=== PATIENT | female | born 1980 | race Caucasian/White ===

== ENCOUNTER 2022-11-19 02:25 | Inpatient (IN) | payer OTHER, SELFPAY ==
[2022-11-19] VITALS (9 sets, daily range): BP systolic 129–153; BP diastolic 69–86; PULSE 84–96; RESP 14–20; TEMP 36.1–37.2; O2SAT 97–100; BMI 24.4; BMI 26.3
--- NOTE | ~2022-11-19 | FL_ITS ---
EXAMINATION: XR FLUOROSCOPY WITH IMAGES CLINICAL INFORMATION: Left ureteral calculus. COMPARISON: CT scan of 11/19/2022. TECHNIQUE: Fluoroscopy Supervised By: Dr. Dev Pitts. Fluoroscopy Time: 30.3 seconds. Cumulative Dose: 5.85 mGy. Images: 5. FINDINGS: C-arm images taken in the operating room demonstrate placement of a left ureteral stent adjacent to a proximal left ureteral calculus. FL/FL guidance in OR IMPRESSION: Placement of left ureteral stent.
--- NOTE | 2022-11-19 03:32 | ED.GENADULT ---
HPI - General Adult General Chief complaint: General Medical Stated complaint: back pain Time Seen by Provider: 11/19/22 03:21 Source: patient and family Mode of arrival: ambulatory Limitations: no limitations History of Present Illness HPI narrative: A 42-year-old female came in for evaluation of left flank pain started about 4 hours ago. Sudden onset of left flank pain that radiates down to the left lower abdomen, never had similar pain in the past, no fever, no chills, no vomiting, pain is associated with nausea. Normal bowel movement, no dysuria, no frequent urination, no hematuria. Sexually active, not . Related Data Allergies Allergy/AdvReac Type Severity Reaction Status Date / Time No Known Allergies Allergy Unknown Unverified 10/29/19 17:27 Review of Systems Review of Systems: All other systems are reviewed and are negative Constitutional: Reports as per HPI and Reports no additional constitutional complaints Eyes: Reports as per HPI and Reports no additional eye complaints Reports system reviewed and no additional complaints, except as documented Cardiovascular: Reports as per HPI and Reports no additional cardiovascular complaints Respiratory: Reports as per HPI and Reports no additional respiratory complaints Gastrointestinal: Reports as per HPI and Reports no additional gastrointestinal complaints Genitourinary: Reports no additional female genitourinary complaints Musculoskeletal: Reports no additional musculoskeletal complaints Skin/Breast: Reports system reviewed and no additional complaints, except as docu Psychiatric: Reports no additional psychiatric complaints Endocrine: Reports no additional endocrine complaints Hematologic/Lymphatic: Reports no additional hematologic/lymphatic complaints Allergic/Immunologic: Reports no additional allergic/immunologic complaints Reports system reviewed and no additional complaints, except as documented and Reports Abnormal speech present [facility] Social History Social History Alcohol intake: never Smoked in Last 30 Days: No Use of substances other than those prescribed or required for medical reasons: No Advance Directives: No Advance Directives Information Provided: No Patient : No Physical Exam ED Vital Signs: Vital Signs - 24 hr 11/19/22 02:38 11/19/22 03:41 11/19/22 06:00 Temperature 97.8 F 98.1 F Pulse Rate 92 84 Respiratory Rate 18 18 16 Blood Pressure 147/81 H 139/74 Pulse Oximetry 99 100 Oxygen Delivery Method Room Air BMI result Body Mass Index 24.4 Vital signs have been reviewed and appear to be correct. Blood pressure elevated. Heart rate normal. Respiratory rate normal. Temperature normal. Oxygen saturation normal. Appearance: Alert. Oriented X3. No acute distress. Head: Normal external exam. Normocephalic. Atraumatic. No [place] signs noted. No raccoon eyes noted Eyes: PERRLA. EOMI. Conjunctiva and sclera normal. Eyelids normal. ENT: TM's Normal. Pharynx normal. Uvula midline. Moist mucous membranes. No trismus noted. No drooling noted. No muffled voice noted. Neck: Normal inspection. Neck supple. FROM. No adenopathy. Thyroid Normal. No meningeal signs. No neck mass noted. CVS: Normal heart rate and rhythm. Heart sound normal. No murmurs noted. Pulses normal throughout. Respiratory: No respiratory distress. Painless inspiration. Breath sounds normal. No wheezes/rales/rhonchi noted. Chest nontender. No accessory muscle usage noted or decreased air movement noted. Abdomen: Soft and nontender. Bowel sounds normal in all 4 quadrants. No distention noted. No organomegaly noted. No visible injury noted. Back: Left CVA tenderness. Full range of motion noted. Skin: Skin warm and dry. Normal skin color. Normal skin turgor. No rashes/lesions/lacerations noted. Extremities: No lower extremity edema. Extremities exhibit normal range of motion. Extremities nontender. Neuro: Oriented X 3. Cranial nerve exam: II-XII are grossly intact No motor deficit. No sensory deficit. Reflexes normal. Course Reevaluation(s) Reevaluation #1: Patient feels better after Dilaudid, pending CT results, signed out to Dr. Clifford. Time: 06:54 Medications Administered Discontinued Medications Generic Name Dose Route Start Last Admin Trade Name Freq PRN Reason Stop Dose Admin Hydromorphone HCl 2 mg 11/19/22 05:46 11/19/22 05:51 Hydromorphone Hcl 2 Mg/Ml Vial IVPUSH 11/19/22 05:47 2 mg ONCE ONE Administration Protocol Sodium Chloride 1,000 mls @ 999 mls/hr 11/19/22 03:31 11/19/22 05:32 Ns IV 11/19/22 04:31 Infused .Q1H1M ONE Infusion Ketorolac Tromethamine 15 mg 11/19/22 03:31 11/19/22 03:39 Ketorolac Tromethamine 15 Mg/Ml Vial IVPUSH 11/19/22 03:32 15 mg ONCE ONE Administration Morphine Sulfate 2 mg 11/19/22 03:31 11/19/22 03:41 Morphine Sulfate 2 Mg/Ml Cartridge IVPUSH 11/19/22 03:32 2 mg ONCE ONE Administration Protocol Ondansetron HCl 4 mg 11/19/22 03:31 11/19/22 03:37 Ondansetron Hcl 4 Mg/2 Ml Vial IVPUSH 11/19/22 03:32 4 mg ONCE ONE Administration Medical Decision Making Differential Diagnosis Differential Diagnoses: The differential diagnosis associated with the presentation includes (UTI, pyelonephritis, left ureteric stone, colitis, diverticulitis, electrolyte abnormality, severe anemia.) Admission/Observation Consideration of admission/observation: Escalation of care including admission/observation considered Lab Data MDM Lab Attestation statement: I reviewed the patient's lab results. 11/19/22 03:33 11/19/22 03:33 Labs: Lab Results 11/19/22 11/19/22 Range/Units 03:33 05:47 WBC 11.3 H (4.8-10.8) X10*3/uL RBC 4.20 (4.20-5.50) X10*6/uL Hgb 10.1 L (12.0-16.0) g/dl Hct 32.1 L (37.0-47.0) % MCV 76.4 L (80.0-98.0) fL MCH 24.0 L (27.0-33.0) pg MCHC 31.5 (31.0-35.0) g/dl RDW 14.4 (11.0-16.0) % Plt Count 313 (160-400) X10*3/uL MPV 9.4 (9.4-12.3) fL Immature Gran % (Auto) 0.4 (0.0-0.4) % Neut % (Auto) 89.2 H (45-73) % Lymph % (Auto) 7.3 L (20-40) % [place] % (Auto) 2.6 (2-11) % Eos % (Auto) 0.1 (0-4) % Baso % (Auto) 0.4 (0-2) % Lymph # (Auto) 0.8 L (1.2-4.9) X10*3/uL [place] # (Auto) 0.3 (0.1-1.2) X10*3/uL Eos # (Auto) 0.0 (0.0-0.4) X10*3/uL Baso # (Auto) 0.0 (0.0-0.2) X10*3/uL Abs Immat Gran (auto) 0.04 H (0.00-0.03) X10*3/uL Absolute Neuts (auto) 10.1 H (2.0-8.3) x10*3/uL Absolute Nucleated RBC 0.000 (0.0-0.012) X10*3/uL Nucleated RBC % (auto) 0.0 (0.0-0.2) /100WBC Sodium 141 (135-145) mmol/L Potassium 3.5 (3.3-5.1) mmol/L Chloride 106 (96-108) mmol/L Carbon Dioxide 23 (22-29) mmol/L Anion Gap 16 (12-20) BUN 19 H (9-16) mg/dL Creatinine 0.94 (0.5-1.4) mg/dL Estim Creat Clear Calc 82.5 Estimated GFR > 60 Random Glucose 120 H (60-115) mg/dL Calcium 9.6 (8.4-10.2) mg/dL Total Bilirubin 0.2 (0.0-1.0) mg/dL AST 17 (5-31) U/L ALT 13 (0-31) U/L Alkaline Phosphatase 66 (39-117) U/L Total Protein 7.2 (6.5-8.0) g/dL Albumin 4.2 (3.5-5.0) g/dL Beta HCG, Quant < 2 mIU/mL Urine Color Yellow Urine Appearance Turbid Urine pH 8.0 (5.0-9.0) Ur Specific [place] 1.015 (1.005-1.025) Urine Protein Negative (Neg-Trace) mg/dL Urine Glucose (UA) Negative (Negative) mg/dL Urine Ketones Negative (Negative) mg/dL Urine Blood Moderate (2+) H (Negative) Urine Nitrite Negative (Negative) Ur Leukocyte Esterase Negative (Negative) Urine RBC >20 H (0-2) /HPF Urine WBC 0-5 (0-5) /HPF Ur Squamous Epith Cells 0-2 (0-2) /HPF Urine Bacteria None Seen (None Seen) Hyaline Casts 0-2 (0-2) /LPF Discharge Plan Discharge Clinical Impression: Acute left flank pain Patient Disposition: Still a Patient
--- NOTE | 2022-11-19 03:45 | PC.NURSE ---
Pt A&Ox4, reports 09/20 constant left flank pain x 4 hours [employer], pt reports she was getting ready for bed and pain started with nausea. Pt denies burning/pain with urination, fevers/chills, no N/D.
[2022-11-19 03:58] LABS: Alanine Aminotransferase 13 U/L (0-31); Albumin Level 4.2 g/dL (3.5-5.0); Alkaline Phosphatase 66 U/L (39-117); Anion Gap 16 (12-20); Aspartate Amino Transferase 17 U/L (5-31); Bilirubin Total 0.2 mg/dL (0.0-1.0); Blood Urea Nitrogen 19 mg/dL (9-16); Calcium 9.6 mg/dL (8.4-10.2); Carbon Dioxide 23 mmol/L (22-29); Chloride 106 mmol/L (96-108); Creatinine Clr Calc Pharmacy 82.5; Estimated Glomerular Filt Rate > 60; Glucose Random 120 mg/dL (60-115); Potassium 3.5 mmol/L (3.3-5.1); Sodium 141 mmol/L (135-145); Total Protein 7.2 g/dL (6.5-8.0)
[2022-11-19 04:00] LABS: HCG Quantitative < 2 mIU/mL
--- NOTE | 2022-11-19 05:43 | PC.NURSE ---
Pt ambulated independently with steady gait to BR.
--- NOTE | 2022-11-19 06:26 | PC.NURSE ---
Pt reports effectiveness to med given.
--- NOTE | 2022-11-19 11:37 | PC.NURSE ---
pt awake, alert, resting comfortably in bed. 1mg IVP Dilaudid helpful in pain reduction. pt awaiting consult from Dr. Pitts
--- NOTE | 2022-11-19 15:59 | PC.NURSE ---
pt resting comfortably at this time, RR even and labored, NAD. awaiting dr klein consult
--- NOTE | 2022-11-19 16:36 | PM.HPGS ---
History of Present Illness History of Present Illness Date of Service: 11/20/22 Chief complaint: left renal stone Narrative: Angely Barrow is a 42 year old female Left UPJ/upper ureter stone Pain since 11pm last night Present hospital No prior history of renal stones Family history renal stones No fever, no chills, no vomiting, pain is associated with nausea. Normal bowel movement, no dysuria, no frequent urination, no hematuria. Imaging - Mild left hydronephrosis and perinephric edema are caused by a 0.7 x 0.5 x 0.8 cm stone in region of the ureteropelvic junction Highly unlikely to pass stone Recommend intervention with left retrograde, ureteroscopy, laser, lithotripsy Review of Systems Constitutional: Constitutional: Reports as per HPI and Reports no additional constitutional complaints Cardiovascular: Cardiovascular: Reports as per HPI and Reports no additional cardiovascular complaints Respiratory: Respiratory: Reports as per HPI and Reports no additional respiratory complaints Gastrointestinal: Gastrointestinal: Reports as per HPI and Reports no additional gastrointestinal complaints Genitourinary: Genitourinary: Reports as per HPI Musculoskeletal: Musculoskeletal: Reports no additional musculoskeletal complaints and Reports as per HPI Neurologic: Reports system reviewed and no additional complaints, except as documented and Reports as per HPI [facility] Social History Social History Household Members: Spouse Housing: House Do you presently have visiting nurse or other home services: No Alcohol intake: never Patient Tobacco Use Status: Never used Tobacco Smoked in Last 30 Days: No Use of substances other than those prescribed or required for medical reasons: No Currently Displaying Signs/Symptoms of Drug Intoxication Withdrawal: No Do you feel safe in your current relationship?: Yes Is there a partner from a previous relationship who is making you feel unsafe now?: No Are you made to feel afraid or neglected: No Advance Directives: No Advance Directives Information Provided: No Do you have thoughts of harming others: None Do you have a plan to hurt others: No Plan Recently lost weight without trying: No Eating poorly because of decreased appetite: No Nutrition Risks: No Nutritional Risk Patient : No : No Poor oral hygiene: No service: No Meds Allergies Allergy/AdvReac Type Severity Reaction Status Date / Time No Known Allergies Allergy Unknown Unverified 10/29/19 17:27 Active Medications: Current Medications Sodium Chloride (Ns) 1,000 mls @ 100 mls/hr IVCONT .Q10H [facility] Ketorolac Tromethamine (Ketorolac Tromethamine 30 Mg/Ml Vial) 30 mg IVPUSH Q6H PRN PRN Reason: Pain, Mild (Pain Scale 1-3) Stop: 11/24/22 16:30 Oxycodone HCl (Oxycodone Hcl Immed Release 5 Mg Tablet) 5 mg PO Q6H PRN PRN Reason: Pain, Severe (Pain Scale 7-10) Sodium Chloride (0.9 % Sodium Chloride Flush 3 Ml Syringe) 3 ml IVFLUSH QSHIFT [facility] Home Medications Medication Instructions Recorded Confirmed Last Taken Type amitriptyline 75 mg tablet 75 mg PO BEDTIME 11/19/22 11/19/22 11/18/22 History sumatriptan succinate 100 mg tablet 100 mg PO DAILY MRX1 PRN migraines 11/19/22 11/19/22 Unknown History sumatriptan succinate 6 mg/0.5 mL 6 mg subcut DAILY MRX1 PRN migraine 11/19/22 11/19/22 11/19/22 History subcutaneous pen injector Physical Exam Vital Signs: Vital Signs: Last Vital Signs Temp 98.9 F 11/19/22 15:40 Pulse 96 11/19/22 15:40 Resp 18 11/19/22 15:40 BP 148/75 H 11/19/22 15:40 Pulse Ox 100 11/19/22 15:40 O2 Del Method Room Air 11/19/22 15:40 BMI result Body Mass Index 24.4 Const: General: cooperative, healthy appearing, comfortable and no acute distress Orientation/consciousness: patient oriented x3 HEENT: Face and sinus: Yes normal facial exam Mouth: moist mucous membranes Neck: Neck: Yes normal visual inspection, Yes full ROM and Yes trachea midline Chest: Chest palpation & inspection: normal inspection of the chest Resp: Effort & Inspection: normal respiratory effort, able to speak in complete sentences and no respiratory distress GI: Inspection: Yes normal to inspection Back/Spine/Pelvis: Cervical Spine: normal cervical lordosis Thoracic/Lumbar Spine: thoracic and lumbar spine normal to inspection Skin: General skin exam: no rashes or lesions noted Neuro: General: patient oriented x3, tone normal and moves all extremities Extrem: General: Yes normal to inspection and Yes capillary refill normal Results Results Labs: Short CBC 11/19/22 Range/Units 03:33 WBC 11.3 H (4.8-10.8) X10*3/uL Hgb 10.1 L (12.0-16.0) g/dl Hct 32.1 L (37.0-47.0) % Plt Count 313 (160-400) X10*3/uL BMP 11/19/22 03:33 Sodium 141 Potassium 3.5 Chloride 106 Carbon Dioxide 23 BUN 19 H Creatinine 0.94 Calcium 9.6 Liver Function 11/19/22 Range/Units 03:33 Total Bilirubin 0.2 (0.0-1.0) mg/dL AST 17 (5-31) U/L ALT 13 (0-31) U/L Alkaline Phosphatase 66 (39-117) U/L Albumin 4.2 (3.5-5.0) g/dL Urine 11/19/22 Range/Units 05:47 Urine Color Yellow Urine Appearance Turbid Urine pH 8.0 (5.0-9.0) Ur Specific [place] 1.015 (1.005-1.025) Urine Protein Negative (Neg-Trace) mg/dL Urine Glucose (UA) Negative (Negative) mg/dL Assessment and Plan (1) Hydronephrosis: Qualifiers: Hydronephrosis type: with ureteral calculous obstruction Qualified Code(s): N13.2 - Hydronephrosis with renal and ureteral calculous obstruction Status: Acute Plan Ureteroscopy We discussed the nature of the decision and reasonable alternatives for performing ureteroscopy. Options such as medical therapy were discussed. Interventions include chemical dissolution, ESWL, ureteroscopy with laser lithotripsy and stent placement, PCNL. The relative uncertainties and benefits related to each alternate procedure were adequately discussed. General surgical risks including, but not limited to - pain, bleeding, infection, myocardial infarction, pulmonary embolus, deep vein thrombosis and cerebrovascular accident which may result in further hospitalization were discussed. Full disclosure of the procedure as well as all major risks, benefits and complications were discussed including but not limited to damage to the urethra, bladder and kidney infection, damage to the ureter, stent migration or malposition, scarring to the renal pelvis, remnant stone fragments, subsequent stone passage with need for secondary procedures. The overall secondary procedure rate is approximately 10-15%. The overall clearance rate is approximately 90-95%. Success of the procedure in the short-term does not necessarily guarantee that long-term success will be maintained. Suitable follow up will need to be maintained. The patient showed understanding of discussion and wishes to proceed with - cystoscopy, retrograde, ureteroscopy, possible lithotripsy/stone basketing and stent on the left side Time Spent With Patient Time: Total time managing care of this patient today ____ minutes. Quality Stroke Does the patient have a stroke diagnosis?: No VTE Prior VTE?: No VTE Risk Level:: Surgical - low VTE Device Contraindication: Treatment Not Indicated VTE Drug Contraindication: Treatment Not Indicated Procedures Date of Service Date of Service: 11/20/22
--- NOTE | 2022-11-19 17:55 | PHA.MEDREC ---
Pharmacy Consult ? Medication Reconciliation Pharmacy has completed the medication reconciliation.
[2022-11-20] VITALS (11 sets, daily range): BP systolic 131–166; BP diastolic 72–85; PULSE 91–97; RESP 14–20; TEMP 36.3–37.7; O2SAT 96–99
--- NOTE | 2022-11-20 15:00 | MHC.CM.PN ---
PT REPORTS SHE LIVES WITH HER AND CHILDREN SHE IS INDEPENDENT WITH CARE, HAS NO SERVICES AND NO DME PT DECLINES TO COMPLETE A HCP HER PCP IS CLIFF CLEMENTS DCP: HOME NO SERVICES VIA FAMILY TRANSPORT
--- NOTE | 2022-11-20 17:57 | MHC.SHP ---
Pre-Procedural Eval Section A Date of Service: 11/20/22 The patient is an INPATIENT: Yes Changes since office visit: No Cold of Flu in the past 2 weeks, No New Medical Problems, No Changes in Medication and No Patient answered all questions The History & Physical has been completed within 30 days and I have reviewed it.: Yes Section B Chief Complaint: left renal stone Allergies: Allergies Allergy/AdvReac Type Severity Reaction Status Date / Time No Known Allergies Allergy Unknown Unverified 10/29/19 17:27 Plan Diagnosis/Plan: Unchanged (cystoscopy, left retrograde, ureteroscopy, laser, stent) I have reviewed the history and physical and performed a pertinent physical examination on my patient. No changes have occurred unless specified. Time Spent With Patient Time: Total time managing care of this patient today ____ minutes.
--- NOTE | 2022-11-20 19:14 | W.PM.OPN ---
Operative Note Operative Note Date of Service: 11/20/22 Narrative: PreOperative Diagnosis: left UPJ renal stone Post Operative Diagnosis: left UPJ renal stone Procedure: - cystoscopy, left retrograde - left dilatation of ureteric orifice under fluoroscopy - left ureteroscopy, laser lithotripsy, stone basketing - left stent placement Surgeon: Dr Dev Pitts Anesthesia: General Indications for procedure: left 8 mm UPJ renal stone Procedure: After informed consent was verified patient was brought to the operating placed in supine position. Anesthesia was administered per protocol. Patient was placed in modified dorsal lithotomy position and prepped and draped in a sterile fashion. Safety pause time-out and side of surgery confirmed. Antibiotics confirmed. 22 [place] cystoscope was inserted per urethra. Bladder was normal in its entirety. Both ureteric orifices were in normal position. The left ureteric orifice was cannulated and a retrograde examination was performed. filling defects seen at left UPJ. A Sensor guidewire was placed up to the level of the renal pelvis under fluoroscopy. The rigid cystoscope was removed and the inner cannula of ureteric access sheath was used under fluoroscopy to dilate the ureteric orifice. Avelino dilator used. Initially rigid ureteral scope placed. Unable to reach stone. The ureteric access sheath was placed and the inner cannula with access wire removed. The digital flexible ureteral scope was placed. Stone was encountered. Using a 272 holmium laser fiber the stone was broken into small pieces initially with dusting settings. The stone remnant moved back into the renal pelvis. Using have a settings this was broken into small pieces. ZeroTip basket used to remove stone fragments. At the completion of the stone procedure a Sensor wire was placed back into the renal pelvis. A 6 [place] by 28 cm double-J stent was placed into the renal pelvis and bladder under a combination of fluoroscopy and direct visualization. The symphisis pubis was used as a radiographic marker to release the stent and good coil was seen within the bladder confirming position The bladder was emptied. The patient tolerated the procedure well and was extubated in the operating room, and transferred in stable condition to the recovery area. Pathology: stones Drains: stent
--- NOTE | 2022-11-20 19:20 | PM.DS ---
DS: Providers Provider Date of Service: 11/20/22 Date of admission: 11/19/22 16:31 Primary care physician: Jennie Gilbert NP DS: Diagnosis Discharge Diagnosis (1) Hydronephrosis: Status: Acute DS: Summary Hospital Course Hospital Course: admission, hospital procedure 11/20/2022 left ureteroscopy Time spent discussing smoking cessation with patient: 3 to 10 minutes Status at Discharge Functional status at discharge: independent ambulation Overall status at discharge: patient is back to baseline Time Spent with Patient Time attestation: Total time managing care of this patient today ____ minutes. Discharge coordination time: Less than 30 minutes Quality: Safe Use of Opioids Does Pt have an Active Cancer Diagnosis on the Problem List?: No Quality: Stroke Does the patient have a stroke diagnosis?: No Physical Exam Vital Signs: Vital Signs: Last Vital Signs Temp 99.8 F 11/20/22 16:31 Pulse 92 11/20/22 16:31 Resp 18 11/20/22 16:31 BP 147/82 H 11/20/22 17:55 Pulse Ox 98 11/20/22 16:31 O2 Del Method Room Air 11/20/22 16:31 BMI result Body Mass Index 26.3 DS: Data Data Completed and Pending Pending studies at discharge: Pending at discharge 11/20/22 19:12 Surgical [PTH] Routine Imaging CT scan - abdomen: Attestation: I personally reviewed and interpreted this imaging study as follows: My impression: left stone 8 mm UPJ Radiologist's impression: ITS Impressions Abdomen/Pelvis CT 11/19/22 04:42 IMPRESSION: * Bilateral renal stones are present. * Mild left hydronephrosis and perinephric edema are caused by a 0.7 x 0.5 x 0.8 cm stone in the region of the ureteropelvic junction. Discharge Plan Discharge Anticipated Discharge Date/Time: 11/20/22 19:16 Patient Disposition: Home, Self-Care Discharge Diagnosis: Renal stone Referrals: Dev Pitts MD [Physician] - 1 Week Jennie Gilbert NP [Primary Care Provider] - None Discharge Medications: New tramadol 50 mg tablet 50 mg PO Q6H PRN (Reason: pain (scale score 1-3)) Qty: 8 0RF tamsulosin 0.4 mg capsule 0.4 mg PO BEDTIME 14 Days Qty: 14 0RF phenazopyridine [Pyridium] 100 mg tablet 100 mg PO TID PRN (Reason: Spasm) 4 Days Qty: 12 0RF naproxen 500 mg tablet 500 mg PO BID PRN (Reason: pain) 7 Days Qty: 14 0RF Continued amitriptyline 75 mg tablet 75 mg PO BEDTIME sumatriptan succinate 100 mg tablet 100 mg PO DAILY MRX1 PRN (Reason: migraines) sumatriptan succinate 6 mg/0.5 mL pen injector 6 mg subcut DAILY MRX1 PRN (Reason: migraine) Discharge Orders: Discharge Order (Routine); Ordered 11/20/22 Ordered By: Dev Pitts Diet: Advance to usual diet Activity on Discharge: As tolerated Stand Alone Forms: Patient Portal Discharge page Care Plan Goals: stones Health Concerns: stones Plan of Treatment: stones Assessment: stones
--- NOTE | 2022-11-20 19:27 | HO.ANESPROP2 ---
REPLACED BY [facility] Active Problems Active Problems: All Active Problems (Updated 11/19/22 @ 15:58 by Lionel Clifford MD) Hydronephrosis (Acute) Renal colic (Acute) Acute left flank pain (Acute) Social History Social History Household Members: Spouse Housing: House Do you presently have visiting nurse or other home services: No Alcohol intake: never Patient Tobacco Use Status: Never used Tobacco Smoked in Last 30 Days: No Use of substances other than those prescribed or required for medical reasons: No Currently Displaying Signs/Symptoms of Drug Intoxication Withdrawal: No Do you feel safe in your current relationship?: Yes Is there a partner from a previous relationship who is making you feel unsafe now?: No Are you made to feel afraid or neglected: No Advance Directives: No Advance Directives Information Provided: No Do you have thoughts of harming others: None Do you have a plan to hurt others: No Plan Recently lost weight without trying: No Eating poorly because of decreased appetite: No Nutrition Risks: No Nutritional Risk Patient : No : No Poor oral hygiene: No service: No Meds Allergies Allergy/AdvReac Type Severity Reaction Status Date / Time No Known Allergies Allergy Unknown Unverified 10/29/19 17:27 Active Medications: Current Medications Acetaminophen (Acetaminophen 325 Mg Tablet) 975 mg PO TID [facility] Last Admin: 11/20/22 14:27 Dose: 975 mg Sodium Chloride (Ns) 1,000 mls @ 100 mls/hr IVCONT .Q10H [facility] Last Admin: 11/20/22 14:27 Dose: 100 mls/hr Ketorolac Tromethamine (Ketorolac Tromethamine 30 Mg/Ml Vial) 30 mg IVPUSH Q6H PRN PRN Reason: Pain, Mild (Pain Scale 1-3) Stop: 11/24/22 16:30 Last Admin: 11/20/22 14:27 Dose: 30 mg Ketorolac Tromethamine (Ketorolac Tromethamine 15 Mg/Ml Vial) 15 mg IVPUSH Q6H PRN PRN Reason: Pain, Moderate(Pain Scale 4-6) Ondansetron HCl (Ondansetron Odt 4 Mg Tab.Rapdis) 4 mg TRANSLINGU Q8H PRN PRN Reason: Nausea Last Admin: 11/20/22 12:26 Dose: 4 mg Ondansetron HCl (Ondansetron Odt 4 Mg Tab.Rapdis) 4 mg TRANSLINGU Q6H PRN PRN Reason: Nausea Oxycodone HCl (Oxycodone Hcl Immed Release 5 Mg Tablet) 5 mg PO Q6H PRN PRN Reason: Pain, Severe (Pain Scale 7-10) Last Admin: 11/20/22 10:56 Dose: 5 mg Oxycodone HCl (Oxycodone Hcl Immed Release 5 Mg Tablet) 5 mg PO Q4H PRN PRN Reason: Breakthrough Pain Sodium Chloride (0.9 % Sodium Chloride Flush 3 Ml Syringe) 3 ml IVFLUSH QSHIFT JULIETTE Last Admin: 11/20/22 15:19 Dose: Not Given Tramadol HCl (Tramadol Hcl 50 Mg Tablet) 50 mg PO Q6H PRN PRN Reason: Pain, Moderate(Pain Scale 4-6) Home Medications Medication Instructions Recorded Confirmed Last Taken Type amitriptyline 75 mg tablet 75 mg PO BEDTIME 11/19/22 11/19/22 11/18/22 History sumatriptan succinate 100 mg tablet 100 mg PO DAILY MRX1 PRN migraines 11/19/22 11/19/22 Unknown History sumatriptan succinate 6 mg/0.5 mL 6 mg subcut DAILY MRX1 PRN migraine 11/19/22 11/19/22 11/19/22 History subcutaneous pen injector Exam Exam Date and Time: November 20, [id number] Height,Weight and Vital Signs: Height 5 ft 10 in Weight 83 kg Last Vital Signs Temp 99.8 F 11/20/22 16:31 Pulse 92 11/20/22 16:31 Resp 18 11/20/22 16:31 BP 147/82 H 11/20/22 17:55 Pulse Ox 98 11/20/22 16:31 O2 Del Method Room Air 11/20/22 16:31 Pertinent Lab Results Pertinent Lab Results: Laboratory Tests 11/19/22 11/19/22 03:33 05:47 WBC 11.3 H RBC 4.20 Hgb 10.1 L Hct 32.1 L MCV 76.4 L MCH 24.0 L MCHC 31.5 RDW 14.4 Plt Count 313 MPV 9.4 Immature Gran % (Auto) 0.4 Neut % (Auto) 89.2 H Lymph % (Auto) 7.3 L [place] % (Auto) 2.6 Eos % (Auto) 0.1 Baso % (Auto) 0.4 Lymph # (Auto) 0.8 L [place] # (Auto) 0.3 Eos # (Auto) 0.0 Baso # (Auto) 0.0 Abs Immat Gran (auto) 0.04 H Absolute Neuts (auto) 10.1 H Absolute Nucleated RBC 0.000 Nucleated RBC % (auto) 0.0 Sodium 141 Potassium 3.5 Chloride 106 Carbon Dioxide 23 Anion Gap 16 BUN 19 H Creatinine 0.94 Estim Creat Clear Calc 82.5 Estimated GFR > 60 Random Glucose 120 H Calcium 9.6 Total Bilirubin 0.2 AST 17 ALT 13 Alkaline Phosphatase 66 Total Protein 7.2 Albumin 4.2 Beta HCG, Quant < 2 Urine Color Yellow Urine Appearance Turbid Urine pH 8.0 Ur Specific [place] 1.015 Urine Protein Negative Urine Glucose (UA) Negative Urine Ketones Negative Urine Blood Moderate (2+) H Urine Nitrite Negative Ur Leukocyte Esterase Negative Urine RBC >20 H Urine WBC 0-5 Ur Squamous Epith Cells 0-2 Urine Bacteria None Seen Hyaline Casts 0-2 Airway Mallampati Class: II TM Dist: >3cm Neck ROM: Full Heart: RRR Lungs: CTA Assessment and Plan Final Anesthetic Review ASA Class: II Final Preanesthetic Review: Meds/Allgs Chart Reviewed, Consent Obtained/Reviewed and Anes Risks/Benef Reviewed Patient Risk: Low Procedure Risk: Low Anesthetic Plan Anesthetic Plan: GA Disposition: Standard PACU
[2022-11-27 19:39] LABS: Stone Source KIDNEY STONE
== END 2022-11-20 20:50 | disposition home or self-care (01) | DRG 661 ==
LOC: HO.ED 15:58 → HO.EDOVER 16:49 → HO.S3 19:17
PROVIDERS: Admitting Provider Urology; Emergency Provider Emergency Medicine; PCP Nurse Practitioner Adult Health; Visit Provider Urology
PROC: 0T778DZ Dilation of Left Ureter with Intraluminal Device, Via Natural or Artificial Opening Endoscopic (ICD-10-PCS; principal; 2022-11-20 16:30)
DX: N13.2 Hydronephrosis with renal and ureteral calculous obstruction (principal)
CPT/HCPCS: 36415; 74176; 80053; 81001; 82365; 84702; 85025; 88300; 99285; C1758; C1769; C1894; C2617; J1170; J1885; J1956; J2250; J2270; J2405; J3010; J3030; Q9967

== ENCOUNTER → 2022-11-19 16:31 | Outpatient (BNV) | payer OTHER, SELFPAY | PROVIDERS: Admitting Provider Urology; Emergency Provider Emergency Medicine; PCP Nurse Practitioner Adult Health; Visit Provider Urology | DX: N13.2 Hydronephrosis with renal and ureteral calculous obstruction (principal) | CPT/HCPCS: 52356; 74420; 99222; 99238 ==

== ENCOUNTER 2022-11-29 09:28 | Outpatient (AMB) | payer OTHER, SELFPAY ==
--- NOTE | 2022-11-29 09:29 | A.OFFVIS_ITS ---
Intake Intake Visit Reasons: Stent Removal Intake Note: Patient presents today for a CYSTOSCOPY Procedure: Meds: None Allergies to Antibiotic: No Known Allergies Blood Thinner: None Urinalysis test cleared for Cysto Disposable Uro-G Cystoscope Cannula: Lot: [id number] Exp: 06/24/2024 Set Up And Charger Required: No Accompanied by: Self / Same As Patient Allergies No Known Allergies Allergy (Unknown, Verified 11/29/22 09:31) HPI HPI Comments History of Present Illness Details Angely is a 42-year-old female who presents today to the office for a follow-up. 11/29/22? She is followed today for stent removal. She has seen Dev Perez on 11/20/22 for acute left flank pain. Patient states that this was her first episode of having kidney stone. She went to ER for pain and had a 8 mm obstructing left UPJ stone. She underwent lithotripsy ureteroscopy by Dr. Pitts. A stent was placed at that time. Patient has a past medical history significant for migraines for which she is taking amitriptyline. I have reviewed CAT scan of the abdomen/pelvis results from 11/19/22 revealed mild left hydronephrosis and perinephric edema are caused by a 0.7 x 0.5 x 0.8 cm stone in the region of the ureteropelvic junction. Calcium Oxalate Monohydrate (Whewellite) 95%, and Carbonate Apatite (Dahllite) 5% 11/29/22: Plan: Follow-up in 10 weeks, 24-hour urine collection, KUB and renal US prior[facility] Surgical History Hx of cystoscopy Family History Father No problems noted. Mother No problems noted. Social History Household Members: Spouse Housing: House Do you presently have visiting nurse or other home services: No Alcohol intake: never Patient Tobacco Use Status: Never used Tobacco service: No Review of Systems Const All systems reviewed & are unremarkable except as noted in HPI and below Reports no additional complaints Eyes Reports no additional complaints ENT Reports no additional complaints Card Denies dyspnea Resp Denies cough and Denies dyspnea GI Reports no additional complaints Reports no additional complaints Musc Reports no additional complaints Skin/Breast Denies rash and Denies unusual bruising Neuro Reports no additional complaints Psych Reports no additional complaints Endo Reports no additional complaints Avery/Lymph Reports no additional complaints Aller/Immun Reports no additional complaints Office Procedures Cystoscopy Consent Discussed risk and benefit or proposed procedure with the patient. Information consent for procedure given to the patient. Discussed technical aspects, risks, benefits and alternatives in full. Addressed all of the patient's questions and concerns regarding the procedure. The patient demonstrated knowledge and understanding. They wish to proceed with this procedure. Preparation The patient was prepped in the usual manner. A cartography/mapping technician was present and in the room. Genitalia was prepped with betadine solution in a sterile manner. Lidocaine Jelly 2% was placed into the urethra and 16Fr flexible Olympus cystoscope was inserted into the meatus after adequate lubrication. 80006-Ltaolowslt with stent removal DISPOSABLE SCOPE URO-G FLEXIBLE SCOPE Procedure code (CPT) selection complete Office Meds lidocaine HCl 2 % mucosal jelly in applicator Performing Provider: Rocio Rodriguez MD Performing Location: [facility] Administered by: Arun Talbot LPN on 11/29/22 10:07 Dose Route Admin Location Dispensed Lot Number Expiration Date NDC Catalytic Converter Operator Helper 10 mL intra-urethral 20 mL naproxen 500 mg tablet Performing Provider: Rocio Rodriguez MD Performing Location: [facility] Administered by: Arun Talbot LPN on 11/29/22 10:07 Dose Route Admin Location Dispensed Lot Number Expiration Date NDC Catalytic Converter Operator Helper 500 mg PO 1 tab ciprofloxacin HCl 500 mg tablet Performing Provider: Rocio Rodriguez MD Performing Location: [facility] Administered by: Arun Talbot LPN on 11/29/22 10:07 Dose Route Admin Location Dispensed Lot Number Expiration Date NDC Catalytic Converter Operator Helper 500 mg PO 1 tab Results AMB Urinalysis, Automated UA Leukoctes 70 George/uL Last Edit by ESTHER Yuo on 11/29/22 10:00 UA Nitrite Negative Last Edit by Omar Ladd Theron on 11/29/22 10:00 UA Urobilinogen 0.2 mg/dL Last Edit by ESTHER You on 11/29/22 10:0 0 UA Protein 30 mg/dL Last Edit by Omar Ladd Theron on 11/29/22 10:00 1+ Omar Ladd 11/29/22 10:00 UA pH 7.5 Last Edit by Omar Ladd Theron on 11/29/22 10:00 UA Blood 80 Maynor/uL Last Edit by Omar Ladd Theron on 11/29/22 10:00 2+ Omar Ladd 11/29/22 10:00 UA Specific [place] 1.010 Last Edit by ESTHER You on 11/29/22 10: 00 UA Ketone Negative Last Edit by Omar Ladd Theron on 11/29/22 10:00 UA Bilirubin 0 mg/dL Last Edit by Omar Ladd Theron on 11/29/22 10:00 UA Glucose 0 mg/dL Last Edit by ESTHER You on 11/29/22 10:00 Results Reviewed Results Reviewed: Laboratory Last Values Urine pH (Auto) 7.5 11/29/22 09:57 Specific [place] (Auto) 1.010 11/29/22 09:57 Urine Protein (Auto) 30 mg/dL 11/29/22 09:57 Glucose (UA)(Auto) 0 mg/dL 11/29/22 09:57 Urine Ketones (Auto) Negative 11/29/22 09:57 Urine Blood (Auto) 80 Maynor/uL 11/29/22 09:57 Urine Nitrite (Auto) Negative 11/29/22 09:57 Urine Bilirubin (Auto) 0 mg/dL 11/29/22 09:57 Urine Urobilinogen (Auto) 0.2 mg/dL 11/29/22 09:57 Leukocyte Esterase (Auto) 70 George/uL 11/29/22 09:57 Date of Service: 11/19/22 EXAMINATION: CT ABDOMEN AND PELVIS WITHOUT CONTRAST?? CLINICAL INFORMATION: Left flank pain.?? COMPARISON: None available. FINDINGS: LUNG BASES: Normal. No pulmonary consolidation or pleural effusion.?? LIVER: The liver has normal size, shape, and attenuation.? No evidence of liver mass. GALLBLADDER AND BILIARY TREE: Gallbladder is without radiopaque stones, wall thickening or pericholecystic fluid.? No dilated bile ducts. PANCREAS: Normal. No edema, pancreatic ductal dilatation or mass.?? SPLEEN: Normal.?? ADRENAL GLANDS: Normal.?? KIDNEYS AND URETERS: Kidneys are normal in size. There are at least two small, 0.2 cm calyceal stones of the lower pole of the right kidney. Also, a few small calyceal stones of less than 0.4 cm size are present in the lower pole of the left kidney. Mild left hydronephrosis and perinephric edema are caused by a 0.7 x 0.5 x 0.8 cm stone in region of the ureteropelvic junction. This stone has density of approximately 1350 Hounsfield units and is located 13 cm deep from the skin surface at the posterior axillary line.? BLADDER:? Normal. No calculi or wall thickening. BOWEL AND PERITONEUM: Stomach is unremarkable. No dilated loops of bowel. The appendix is normal. A few diverticula of the sigmoid colon are present. No overt bowel wall thickening or mesenteric fat stranding. No free fluid or pneumoperitoneum. ABDOMINAL WALL: No significant findings.?? VASCULATURE: Unremarkable. LYMPH NODES: No pathologic sized lymph nodes in the abdomen or pelvis. No inguinal lymphadenopathy. PELVIC VISCERA: No uterine or adnexal mass. MUSCULOSKELETAL: Unremarkable.?? IMPRESSION:? *? Bilateral renal stones are present. *? Mild left hydronephrosis and perinephric edema are caused by a 0.7 x 0.5 x 0.8 cm stone in the region of the ureteropelvic junction. SPEC : [id number] GEORGE: 11/20/22 STATUS: COMP REQ : [id number] RECD: 11/21/22 [facility] DR: Dev Pitts MD COMP: 11/27/22 ENTERED: 11/21/22 [facility] [address]: CLIFF CLEMENTS NP ORDERED: Kidney Stone QUERIES: Kidney Stone Source: [id number] Test Result Flag Reference Site Component 1 SEE NOTE QUM Calcium Oxalate Monohydrate (Whewellite) 95% Carbonate Apatite (Dahllite) 5% See Note 1 Stone Weight 0.042 g QUM Note 1 This test was developed and its analytical performance characteristics have been determined by [employer]. It has not been cleared or approved by the FDA. This assay has been validated pursuant to the CLIA regulations and is used for clinical purposes. THIS TEST WAS PERFORMED AT: [facility] [id number] [place] [id number] AURORA DANIELS MD Stone Source KIDNEY STONE QUM Assessment & Plan Assessment & Plan (1) Bilateral kidney stones: Code(s): N20.0 - Calculus of kidney (2) Ureteral stone with hydronephrosis: Code(s): N13.2 - Hydronephrosis with renal and ureteral calculous obstruction (3) Ureteral stone: Code(s): N20.1 - Calculus of ureter Plan Follow-up in 10 weeks, 24-hour urine collection, KUB and renal US prior. Orders: Orders US renal BI Today N20.0 - Calculus of kidney AMB Urinalysis Automated Today Z13.9 - Encounter for screening, unspecified AMB Cystoscopy Today N13.30 - Unspecified hydronephrosis XR KUB Today N20.0 - Calculus of kidney Patient Instructions: The patient had an opportunity to ask questions regarding treatment plan. All questions were answered. Imaging, Laboratory studies and physical exam results were discussed and reviewed in detail. No major barriers to understanding were identified. The patient expressed understanding and agreement with the above treatment plan.? ? ? The patient is aware they should contact our office by phone for worsening of their current condition or the appearance of new symptoms. Compliance is en couraged with any medications and followup testing that is ordered.? ? ? It is a privilege to be allowed the opportunity to participate in the urologic care of your patient. If you have any questions or concerns regarding treatment for the above conditions please do not hesitate to contact me. The office telephone contact is [phone].? ? ? This note is constructed in part using voice recognition software. While every effort has been made to ensure accuracy casing trimmer errors may have been included.? ? ? Yours sincerely,? ? ? Rocio Rodriguez MD? ? Coding Level of Care Code Est Pt Level 3 (85432) Diagnoses Bilateral kidney stones N20.0 Ureteral stone with hydronephrosis N13.2 Ureteral stone N20.1 CPT Codes Cystoscopy - CPT: 42675-[id number] with stent removal ([id number])
== END 2022-11-29 10:36 | disposition home or self-care (01) ==
PROVIDERS: PCP Nurse Practitioner Adult Health; Visit Provider Urology
DX: N13.30 Unspecified hydronephrosis (principal); Z96.0 Presence of urogenital implants; Z13.9 Encounter for screening, unspecified
CPT/HCPCS: 52310

== ENCOUNTER → 2022-11-29 09:28 | Outpatient (BNVA) | payer OTHER, SELFPAY | PROVIDERS: PCP Nurse Practitioner Adult Health; Visit Provider Urology | DX: Z48.816 Encounter for surgical aftercare following surgery on the genitourinary system (principal); N13.2 Hydronephrosis with renal and ureteral calculous obstruction | CPT/HCPCS: 52310; 81003 ==

== ENCOUNTER 2023-01-18 12:38 | Outpatient (REF) | payer OTHER, SELFPAY ==
--- NOTE | ~2023-01-18 | US_ITS ---
EXAMINATION: US RETROPERITONEAL LIMITED (RENAL ONLY) CLINICAL INFORMATION: Calculus of kidney. COMPARISON: X-ray KUB 01/18/2023. CT abdomen and pelvis 11/19/2022. TECHNIQUE: Real-time imaging of the kidneys. FINDINGS: RIGHT KIDNEY: 12.6 x 4.5 x 6 cm (SAG x AP x TRV). The kidney is normal in size, contour, and echogenicity. Renal cortical thickness is normal. No calculi or focal parenchymal lesions. No hydronephrosis. LEFT KIDNEY: 11.7 x 6.4 x 5.3 cm (SAG x AP x TRV). The kidney is normal in size, contour, and echogenicity. Renal cortical thickness is normal. 4 mm nonobstructing lower pole calculus. No hydronephrosis. US/US renal BI IMPRESSION: 4 mm nonobstructing left renal calculus. No right-sided renal calculi. No hydronephrosis of either kidney.
--- NOTE | ~2023-01-18 | XR_ITS ---
EXAMINATION: XR ABDOMEN KUB CLINICAL INDICATION: Calculus of kidney. COMPARISON: Renal ultrasound of 01/18/2023. CT abdomen and pelvis of 11/19/2022. TECHNIQUE: 2 AP views of the abdomen. FINDINGS: Nonobstructive bowel gas pattern. Moderate amount of stool in the colon. Visualization of the bilateral kidneys is limited due to overlying bowel. A 4 mm calculus overlies the interpolar region of the left kidney. No definitive right renal calculi are appreciated. Degenerative changes in the lumbar spine. Tiny pelvic calcifications are likely vascular. XR/XR KUB IMPRESSION: A 4 mm calculus overlies the interpolar region of the left kidney. No definitive right renal calculi are appreciated.
== END 2023-01-18 12:39 | disposition home or self-care (01) ==
LOC: HO.US 12:38
PROVIDERS: PCP Nurse Practitioner Adult Health; Visit Provider Urology
DX: N20.0 Calculus of kidney (principal)
CPT/HCPCS: 74018; 76775

== ENCOUNTER 2023-02-08 13:43 | Outpatient (AMB) | payer OTHER, SELFPAY ==
--- NOTE | 2023-02-08 13:53 | A.OFFVIS_ITS ---
Intake Intake Visit Reasons: 10w/US/lithabdoulk Intake Note: Patient presents today for a 10 week follow-up with US Results: Meds: None Allergies to Antibiotic: No Known Allergies Blood Thinner: None Digital Data Analyst Required: No Accompanied by: Self / Same As Patient Allergies No Known Allergies Allergy (Unknown, Verified 11/29/22 09:31) Medication List - Last Reconciled 02/08/23 by Rocio Rodriguez MD amitriptyline 75 mg PO BEDTIME naproxen (EC-Naprosyn) 375 mg PO BID PRN 10 days prednisone 20 mg PO DAILY 3 days sumatriptan succinate 6 mg subcut DAILY MRX1 PRN sumatriptan succinate 100 mg PO DAILY MRX1 PRN tamsulosin 0.4 mg PO DAILY 20 days HPI HPI Comments History of Present Illness Details Angely is a 42-year-old female who presents today to the office for a follow-up. LV 11/29/22 she was seen for stent removal. 02/08/23 The patient was initially seen in November for left flank pain. Patient states that this was her first episode of having kidney stone. She went to ER for pain and had a 8 mm obstructing left UPJ stone. She underwent lithotripsy ureteroscopy by Dr. Pitts. A stent was placed at that time. Patient has a past medical history significant for migraines for which she is taking amitriptyline. She complains today of waxing left flank pain, she is prescribed naproxen 375 mg b.i.d. p.r.n. which she states helps. I have reviewed renal ultrasound from 01/18/2023 and reassured her that there is no obstruction of the kidneys, 4 mm left nonobstructing kidney stone as noted. I have discussed that prior November CT scan did noted tiny right kidney stones as well. She has not completed the 24 hr urine yet. I have discussed at length diet modification to decrease risk of forming more kidney stones. I have discussed low oxalate diet and specific foods to avoid including certain green leafy vegetables, chocalate, nuts, tea, beets, rubarb; low sodium, decreased use of animal protein and the importance of hydration drinking up to 2-2.5 liters of fluids and use of adding lemon to water to increase citrate in the diet. A pamphlet is also provided today. Review of chart: CAT scan of the abdomen/pelvis results from 11/19/22 revealed mild left hydronephrosis and perinephric edema are caused by a 0.7 x 0.5 x 0.8 cm stone in the region of the ureteropelvic junction. Stone analysis: Calcium Oxalate Monohydrate ([place]) 95%, and Carbonate Apatite ([place]) 5% 02/08/23: Plan: Naproxen p.r.n. Modification to diet to decrease kidney stone risk. Follow-up in 4 months 24 hour urine prior. PFSH Surgical History Hx of cystoscopy Family History Father No problems noted. Mother No problems noted. Social History Household Members: Spouse Housing: House Do you presently have visiting nurse or other home services: No Alcohol intake: never Patient Tobacco Use Status: Never used Tobacco service: No Review of Systems Const All systems reviewed & are unremarkable except as noted in HPI and below Reports no additional complaints Eyes Reports no additional complaints ENT Reports no additional complaints Card Denies dyspnea Resp Denies cough and Denies dyspnea GI Reports no additional complaints Reports no additional complaints Musc Reports no additional complaints Skin/Breast Denies rash and Denies unusual bruising Neuro Reports no additional complaints Psych Reports no additional complaints Endo Reports no additional complaints Avery/Lymph Reports no additional complaints Aller/Immun Reports no additional complaints Results AMB Urinalysis, Automated UA Leukoctes 0 George/uL Last Edit by ESTHER You on 02/08/23 14:47 UA Nitrite Negative Last Edit by ESTHER You on 02/08/23 14:47 UA Urobilinogen 0.2 mg/dL Last Edit by Omar Alvareschristine A on 02/08/23 14:4 7 UA Protein 0 mg/dL Last Edit by Cristhianniyah Wilberto, RMA on 02/08/23 14:47 UA pH 6.5 Last Edit by Omar Ladd, RMA on 02/08/23 14:47 UA Blood 0 Maynor/uL Last Edit by Omar Ladd RMA on 02/08/23 14:47 UA Specific [place] 1.010 Last Edit by Cristhianniyah Wilberto, RMA on 02/08/23 14: 47 UA Ketone Last Edit by Omar Alvaresirez, RMA on 02/08/23 14:47 UA Bilirubin 0 mg/dL Last Edit by Omar Goodmancristhian RMA on 02/08/23 14:47 UA Glucose 0 mg/dL Last Edit by Omar Alvareschristine A on 02/08/23 14:47 Results Reviewed Results Reviewed: Laboratory Last Values Urine pH (Auto) 6.5 02/08/23 14:18 Specific [place] (Auto) 1.010 02/08/23 14:18 Urine Protein (Auto) 0 mg/dL 02/08/23 14:18 Glucose (UA)(Auto) 0 mg/dL 02/08/23 14:18 Urine Blood (Auto) 0 Maynor/uL 02/08/23 14:18 Urine Nitrite (Auto) Negative 02/08/23 14:18 Urine Bilirubin (Auto) 0 mg/dL 02/08/23 14:18 Urine Urobilinogen (Auto) 0.2 mg/dL 02/08/23 14:18 Leukocyte Esterase (Auto) 0 George/uL 02/08/23 14:18 Date of Service: 01/18/23 EXAMINATION: US RETROPERITONEAL LIMITED (RENAL ONLY) CLINICAL INFORMATION: Calculus of kidney. COMPARISON: X-ray [facility] 01/18/2023. CT abdomen and pelvis 11/19/2022. TECHNIQUE: Real-time imaging of the kidneys. FINDINGS: RIGHT KIDNEY: 12.6 x 4.5 x 6 cm (SAG x AP x TRV). The kidney is normal in size, contour, and echogenicity. Renal cortical thickness is normal. No calculi or focal parenchymal lesions. No hydronephrosis. LEFT KIDNEY: 11.7 x 6.4 x 5.3 cm (SAG x AP x TRV). The kidney is normal in size, contour, and echogenicity. Renal cortical thickness is normal. 4 mm nonobstructing lower pole calculus. No hydronephrosis. IMPRESSION: 4 mm nonobstructing left renal calculus. No right-sided renal calculi. No hydronephrosis of either kidney. Date of Service: 01/18/23 EXAMINATION: XR ABDOMEN [facility]UB CLINICAL INDICATION: Calculus of kidney. COMPARISON: Renal ultrasound of 01/18/2023. CT abdomen and pelvis of 11/19/2022. TECHNIQUE: 2 AP views of the abdomen. FINDINGS: Nonobstructive bowel gas pattern. Moderate amount of stool in the colon. Visualization of the bilateral kidneys is limited due to overlying bowel. A 4 mm calculus overlies the interpolar region of the left kidney. No definitive right renal calculi are appreciated. Degenerative changes in the lumbar spine. Tiny pelvic calcifications are likely vascular. IMPRESSION: A 4 mm calculus overlies the interpolar region of the left kidney. No definitive right renal calculi are appreciated. Assessment & Plan Assessment & Plan (1) Bilateral kidney stones: Code(s): N20.0 - Calculus of kidney (2) Left flank pain: Code(s): R10.9 - Unspecified abdominal pain Plan Naproxen p.r.n. Modification to diet to decrease kidney stone risk. Follow-up in 4 months 24 hour urine prior. Orders: Orders AMB Urinalysis Automated Today Z13.9 - Encounter for screening, unspecified Medications: New ondansetron HCl 8 mg PO Q8H PRN 20 tabs 1RF nausea and vomiting Refilled naproxen (EC-Naprosyn) 375 mg PO BID 10 days PRN 20 tabs 2RF pain Patient Instructions: The patient had an opportunity to ask questions regarding treatment plan. All questions were answered. Imaging, Laboratory studies and physical exam results were discussed and reviewed in detail. No major barriers to understanding were identified. The patient expressed understanding and agreement with the above treatment plan. The patient is aware they should contact our office by phone for worsening of their current condition or the appearance of new symptoms. Compliance is encouraged with any medications and followup testing that is ordered. It is a privilege to be allowed the opportunity to participate in the urologic care of your patient. If you have any questions or concerns regarding treatment for the above conditions please do not hesitate to contact me. The office telephone contact is [phone]. This note is constructed in part using voice recognition software. While every effort has been made to ensure accuracy inpatient coder errors may have been included. Yours sincerely, Rocio Rodriguez MD Coding Level of Care Code Est Pt Level 4 (31309) Diagnoses Bilateral kidney stones N20.0 Left flank pain R10.9
== END 2023-02-08 15:09 | disposition home or self-care (01) ==
PROVIDERS: PCP Nurse Practitioner Adult Health; Visit Provider Urology
DX: N20.0 Calculus of kidney (principal); R10.9 Unspecified abdominal pain; Z13.9 Encounter for screening, unspecified
CPT/HCPCS: 99214

== ENCOUNTER → 2023-02-08 13:43 | Outpatient (BNVA) | payer OTHER, SELFPAY | PROVIDERS: PCP Nurse Practitioner Adult Health; Visit Provider Urology | DX: N20.0 Calculus of kidney (principal) | CPT/HCPCS: 81003 ==